=== PATIENT | female | born 1940 | race Caucasian/White ===

== ENCOUNTER → 2021-05-01 15:54 | Outpatient (CLI) | payer MEDICARE, OTHER, SELFPAY ==
[2021-05-01 16:53] LABS: BUN Creatinine Ratio 24.6 (6-22); Blood Urea Nitrogen 35 mg/dL (7-17); Calcium 9.5 mg/dL (8.4-10.2); Carbon Dioxide 31 mmol/L (22-32); Chloride 99 mmol/L (98-107); Estimated Glomerular Filt Rate 35.6 mL/min (>60); Glucose 118 mg/dL (80-110); HEMOLYSIS < 15 (0-50); Potassium 3.9 mmol/L (3.4-5.1); Sodium 139 mmol/L (137-145)
== END ==
PROVIDERS: PCP Internal Medicine; Referring Provider Internal Medicine Cardiovascular Disease; Visit Provider Internal Medicine Cardiovascular Disease
DX: I50.22 Chronic systolic (congestive) heart failure (principal)
CPT/HCPCS: 36415; 80048

== ENCOUNTER → 2021-09-01 13:21 | Outpatient (CLI) | payer MEDICARE, OTHER, SELFPAY ==
--- NOTE | 2021-09-01 | DI.ECHO.S_ITS ---
[facility] +---------+ : : [address] [address] : : : : [id number] : : : : Phone: [phone] Echocardiogram Report + + :Name: RAVEN MONK V Study Date: 09/01/2021 Height: 63 in : :[facility] ReadingLocation: Weight: 140 lb: : Gender: Female BSA: 1.7 m2 : :: 1940 Age: 80 yrs BP: 95/66 mmHg: :Reason For Study: SYSTOLIC HEART FAILURE : :Ordering Physician: VERONA, : :SAMSON Performed By: Yazmin Hatch : :Referring: SAMSON PINEDA : + + Interpretation Summary 1) Mildly increased left ventricular thickness (concentric) with normal size and mildly reduced systolic function (EF 45-50%). 2) Normal right ventricular size and function. 3) The left atrium is severely dilated. 4) There is moderate mitral regurgitation. 5) Compared to the Echo done 11/23/2016, LVEF has decreased slightly from 50-55% to 45-50% and mitral regurgitation has improved from moderate-severe to moderate on this study. Procedure: A two-dimensional transthoracic echocardiogram with color flow and Doppler was performed. The study quality was technically adequate. Comparison is made with the echocardiogram of 11/23/2016. The heart rate ranged between 50-70 bpm during the study. Left Ventricle: The left ventricle is normal in size. Left ventricular wall thickness is mildly increased. The ejection fraction is estimated to be 45- 50%. Septal motion is consistent with conduction abnormality. Right Ventricle: The right ventricle is normal in size and function. Atria: The left atrium is severely dilated. Right atrial size is normal. There is no Doppler evidence for an interatrial shunt. Mitral Valve: The mitral valve is normal in structure but abnormal in function. There is moderate mitral regurgitation. Aortic Valve: The aortic valve is slightly calcified. The aortic valve is trileaflet. The aortic valve opens well. There is no aortic valve stenosis. There is trace aortic regurgitation. Tricuspid Valve: The tricuspid valve is normal in structure and function. There is mild tricuspid regurgitation. Pulmonic Valve: The pulmonic valve is not well seen, but is grossly normal. There is no pulmonic valvular regurgitation. Great Vessels: The aortic root is normal size. The dimensions of the ascending aorta are normal. The IVC is of normal diameter and collapses greater than 50% with a sniff. This suggests a low right atrial pressure of 3 mm Hg. Pericardium/ Pleura There is no pericardial effusion. There is no pleural effusion. MMode/2D Measurements & Calculations LVIDd: 4.5 cm LVOT diam: 2.0 cm LVIDs: 3.5 cm Ao root diam: 2.7 cm FS: 21.9 % asc Aorta Diam: 3.1 cm IVSd: 1.3 cm Ao Arch Diam (Prox Trans): 2.7 cm LVPWd: 0.98 cm LV roblero. diameter/BSA (cm/m^2): 2.7 LV sys. diameter/BSA (cm/m^2): 2.1 LA A2 area: 28.2 cm2 RA long axis: 4.7 cm LA A4 area: 29.1 cm2 RA area: 14.3 cm2 LA length (vol): 6.4 cm RA vol: 37.0 ml LA vol: 109.5 ml RA : 22.2 ml/m2 LA vol index: 65.9 ml/m2 IVC diam: 1.3 cm RVD1 (basal): 3.2 cm RVD2 (mid): 2.7 cm TAPSE: 2.2 cm Doppler Measurements & Calculations Ao V2 max: 174.2 cm/sec LVOT Max Ebenezer: 100.7 cm/sec Ao V2 mean: 125.3 cm/sec LV V1 max P.1 mmHg Ao max P.2 mmHg LV V1 VTI: 28.7 cm Ao mean P.1 mmHg JAXSON(I,D): 1.9 cm2 Ao V2 VTI: 44.3 cm JAXSON(V,D): 1.7 cm2 sev ratio: 0.65 JAXSON indexed to BSA (cm^2/m^2): 1.2 MV E max ebenezer: 104.1 cm/sec PA V2 max: 102.8 cm/sec MV A max ebenezer: 72.7 cm/sec PA V2 mean: 71.3 cm/sec MV E/A: 1.4 PA mean P.3 mmHg Med Peak E' Ebenezer: 5.3 cm/sec PA pr(Accel): 24.2 mmHg E/E' med: 19.7 MV dec time: 0.23 sec MR ERO: 0.14 cm2 MR PISA: 2.5 cm2 SV(LVOT): 85.9 ml MR flow rate: 93.8 cm3/sec MR PISA radius: 0.64 cm Reading Physician:04:02 PM
[2021-09-01 15:12] LABS: Add Manual Diff / Slide Review NO; Basophils Absolute Auto 0 /uL (0-100); Basophils Percent Auto 0.6 % (0-2); Eosinophils Absolute Auto 200 /uL (0-450); Eosinophils Percent Auto 2.3 % (2-4); Hematocrit 35.4 % (36-46); Hemoglobin 12.4 g/dL (12.0-16.0); Lymphocytes Absolute Auto 1900 /uL (1100-4500); Lymphocytes Percent Auto 27.8 % (25-40); Mean Corpuscular HGB Conc 35.1 % (30-36); Mean Corpuscular Volume 85.4 fL (80-100); Monocytes Absolute Auto 500 /uL (0-900); Monocytes Percent Auto 7.5 % (3-14); Neutrophils Absolute Auto 4300 /uL (1500-7000); Neutrophils Percent Auto 61.8 % (50-75); Platelet Count 211 X10^3/uL (150-400); Red Blood Cell Count 4.14 X10^6/uL (4.0-5.2); Red Cell Distribution Width 16.4 % (11.6-14.8)
[2021-09-01 15:14] LABS: BUN Creatinine Ratio 30.7 (6-22); Blood Urea Nitrogen 39 mg/dL (7-17); Calcium 9.3 mg/dL (8.4-10.2); Carbon Dioxide 30 mmol/L (22-32); Chloride 104 mmol/L (98-107); Cholesterol 115 mg/dL (140-199); Estimated Glomerular Filt Rate 43 mL/min (>60); Glucose 112 mg/dL (80-110); HDL Cholesterol 46 mg/dL (40-60); HEMOLYSIS < 15 (0-50); LDL Cholesterol Calculated 38 mg/dL (<100); Potassium 4.4 mmol/L (3.4-5.1); Sodium 141 mmol/L (137-145); Triglycerides 155 mg/dL (35-150)
== END ==
PROVIDERS: PCP Internal Medicine; Referring Provider Internal Medicine Cardiovascular Disease; Visit Provider Internal Medicine Cardiovascular Disease
DX: I25.10 Atherosclerotic heart disease of native coronary artery without angina pectoris (principal); E78.5 Hyperlipidemia, unspecified; I50.22 Chronic systolic (congestive) heart failure; I08.1 Rheumatic disorders of both mitral and tricuspid valves
CPT/HCPCS: 36415; 80048; 80061; 85025; 93306

== ENCOUNTER 2023-01-09 19:23 | Emergency (ER) | payer MEDICARE, OTHER, SELFPAY ==
[2023-01-09] VITALS (19 sets, daily range): BP systolic 83–193; BP diastolic 50–88; PULSE 67–97; RESP 15–28; TEMP 36.8; O2SAT 87–100; BMI 25.8
--- NOTE | 2023-01-09 19:40 | DI.RAD.S_ITS ---
PROCEDURE: XR CHEST 1V INDICATIONS: Shortness of breath TECHNIQUE: One view of the chest was acquired. COMPARISON: [facility], CHEST 1 VIEW, 12/10/2012, 16:18. [facility], CHEST 1 VIEW, 12/04/2011, 15:46. FINDINGS: Surgical changes and devices: None. Lungs and pleura: No consolidation, pleural effusion, or pneumothorax identified. Possible 1 centimeter pulmonary nodule or granuloma or prominent costochondral cartilage left lung base. Few indeterminate irregular nodular opacities right lung base. Mediastinum: Mediastinal contours appear normal. Heart size is normal. Bones and chest wall: No suspicious bony lesions. Overlying soft tissues appear unremarkable. IMPRESSION: 1. No consolidation, pleural effusion, or pneumothorax. 2. Possible pulmonary nodules/granulomata/other nonspecific opacities at both lung bases. CT of the chest could be obtained for further evaluation if clinically indicated, for example on a nonemergent basis. Dictated by: Joel Russell M.D. on 01/09/2023 at 20:36 Approved by: Joel Russell M.D. on 01/09/2023 at 20:39
[2023-01-09 20:13] LABS: Prothrombin Time 11.6 SECONDS (10.1-12.7)
[2023-01-09 20:15] LABS: Add Manual Diff / Slide Review NO; Basophils Absolute Auto 0 /uL (0-100); Basophils Percent Auto 0.2 % (0-2); Eosinophils Absolute Auto 100 /uL (0-450); Eosinophils Percent Auto 2.1 % (2-4); Hematocrit 34.8 % (36-46); Hemoglobin 11.9 g/dL (12.0-16.0); Lymphocytes Absolute Auto 1900 /uL (1100-4500); Lymphocytes Percent Auto 40.1 % (25-40); Mean Corpuscular HGB Conc 34.3 % (30-36); Mean Corpuscular Hemoglobin 28.9 PG (26-34); Mean Corpuscular Volume 84.3 fL (80-100); Monocytes Absolute Auto 400 /uL (0-900); Monocytes Percent Auto 9.4 % (3-14); Neutrophils Absolute Auto 2300 /uL (1500-7000); Neutrophils Percent Auto 48.2 % (50-75); Platelet Count 188 X10^3/uL (150-400); Red Blood Cell Count 4.12 X10^6/uL (4.0-5.2); Red Cell Distribution Width 14.1 % (11.6-14.8); White Blood Cell Count 4.7 X10^3/uL (4.5-11.0)
[2023-01-09 20:20] LABS: Alanine Aminotransferase 25 IU/L (<35); Albumin 3.9 g/dL (3.5-5.0); Albumin Globulin Ratio 1.2 (1.0-2.8); Alkaline Phosphatase 46 U/L (38-126); Aspartate Aminotransferase 27 IU/L (14-36); BUN Creatinine Ratio 17.5 (6-22); Bilirubin Total 0.7 mg/dL (0.2-1.3); Blood Urea Nitrogen 20 mg/dL (7-17); Calcium 9.4 mg/dL (8.4-10.2); Carbon Dioxide 23 mmol/L (22-32); Chloride 104 mmol/L (98-107); Estimated Glomerular Filt Rate 48 mL/min (>60); Globulin 3.2 g/dL (1.7-4.1); Glucose 109 mg/dL (80-110); HEMOLYSIS < 15 (0-50); Lactate (Lactic Acid) 1.4 mmol/L (0.7-2.1); Potassium 4.2 mmol/L (3.4-5.1); Sodium 137 mmol/L (137-145); Total Protein 7.1 g/dL (6.3-8.2)
[2023-01-09 20:31] LABS: NT-proBNP (BNP-Adult 18+) 1090 pg/mL (<450); Troponin I 0.015 ng/mL (0.01-0.034)
[2023-01-09 20:48] LABS: Influenza A - CEPHEID Flu A NEGATIVE (NEGATIVE); Influenza B - CEPHEID Flu B NEGATIVE (NEGATIVE); Respiratory Syncytial Virus Negative (Negative)
[2023-01-09 20:52] LABS: COVID-19 CEPHEID 4-PLEX PCR POSITIVE (Negative)
--- NOTE | 2023-01-09 20:57 | ED_ITS ---
HPI - SOB/Dyspnea General Chief Complaint: Shortness of Breath/Dyspnea Stated Complaint: weak after having covid/ dry cough/ Time Seen by Provider: 01/09/23 20:36 Source: patient Mode of arrival: Ambulatory Limitations: no limitations History of Present Illness HPI Narrative: Patient 82-year-old female history of atrial fibrillation reports that she had COVID about 2-3 weeks ago she has not quite recovered. She continues to feel weak and shaky. She reports that she is been out of her medication for at least that long no once been able to fill them or pick them. She is able to get up and go to the restroom denies any significant shortness of breath or chest pain. She reports that she is able to eat and drink some but just generally feels weak. She has not truly recovered she. She reports that she only had fever when she had COVID does not report fever or pain now. Related Data Home Medications Medication Instructions Recorded Confirmed ASPIRIN (#ASPIR 81) 81 mg PO ##0 12/04/11 Previous Rx's Medication Instructions Recorded cefpodoxime 200 mg tablet 200 mg PO BID #14 tabs 01/10/23 doxycycline hyclate 100 mg capsule 100 mg PO BID #14 caps 01/10/23 Allergies Allergy/AdvReac Type Severity Reaction Status Date / Time Penicillins [PENICILLINS] Allergy Severe Rash Unverified 07/31/17 12:19 povidone-iodine Allergy Severe Bad Unverified 07/31/17 12:19 [From BETADINE] reaction soap [From BETADINE] Allergy Severe Bad Unverified 07/31/17 12:19 reaction venom-honey bee Allergy Severe HIVES, Unverified 07/31/17 12:19 [bee venom (honey bee)] ANAPHYLAXIS adhesive [ADHESIVE] Allergy Mild Dermatitis Unverified 07/31/17 12:19 Review of Systems Review of Systems ROS Unobtainable: All systems reviewed & are unremarkable except as noted in HPI and below Patient History Surgical History Status post cholecystectomy (01/11/11) Status post colonoscopy (09/20/11) Status post laparoscopic cholecystectomy (01/11/11) Social History Smoking Status: Never smoker Smoking Status: Never smoker Substance Use Type: does not use Exam Initial Vital Signs Initial Vital Signs: Vital Signs Temperature 98.3 F 01/09/23 19:27 Pulse Rate 83 01/09/23 19:27 Respiratory Rate 24 01/09/23 19:27 Blood Pressure 120/82 01/09/23 19:27 Pulse Oximetry 99 01/09/23 19:27 Oxygen Delivery Method Room Air 01/09/23 19:27 GENERAL: Alert elderly 82-year-old female and in [no acute] distress. HEENT: Head atraumatic,EOMI, pupils reactive, face symmetric, [moist] mucous membranes CARDIOVASCULAR: Regular rate and rhythm without murmurs, rubs or gallops. RESPIRATORY: Breath sounds equal bilaterally, no wheezes rales or rhonchi. ABDOMEN: Soft, nontender. Normoactive bowel sounds all 4 quadrants. No guarding or rebound. EXTREMITIES: Normal range of motion, no clubbing or edema. Neurovascularly intact NEUROLOGICAL: Alert and oriented x4 SKIN: Warm, dry, no laceration, no petechiae, no rashes or lesions. Course Orders Ordered: Discontinued Medications Sodium Chloride (Normal Saline 0.9%) 1,000 mls @ 1,000 mls/hr IV BOLUS ONE Stop: 01/09/23 23:21 Last Infusion: 01/09/23 22:45 Dose: 0 mls/hr Documented By: Admin: 01/09/23 21:00 Dose: 1,000 mls/hr Documented By: GARY NOREPINEPHRINE BITARTRATE/D5W (Levophed) 4 mg in 250 mls @ 24.834 mls/hr IV TITRATE JERAD; Protocol Last Admin: 01/10/23 00:17 Dose: Not Given Documented By: GARY Sodium Chloride (Normal Saline 0.9%) 1,000 mls @ 1,000 mls/hr IV BOLUS ONE Stop: 01/09/23 23:45 Last Infusion: 01/10/23 00:16 Dose: 0 mls/hr Documented By: Admin: 01/09/23 22:55 Dose: 1,000 mls/hr Documented By: GARY Vital Signs Vital signs: Vital Signs - 8 hr 01/09/23 19:27 01/09/23 20:03 01/09/23 20:30 Temperature 98.3 F Pulse Rate 83 75 Respiratory Rate 24 18 Blood Pressure 120/82 111/67 92/62 Pulse Oximetry 99 99 Oxygen Delivery Method Room Air 01/09/23 20:30 01/09/23 21:00 01/09/23 21:00 Temperature Pulse Rate 70 68 Respiratory Rate 18 15 Blood Pressure 85/60 L Pulse Oximetry 98 98 Oxygen Delivery Method 01/09/23 21:02 01/09/23 21:02 01/09/23 21:30 Temperature Pulse Rate 71 Respiratory Rate 21 Blood Pressure 89/65 L 83/55 L Pulse Oximetry 98 Oxygen Delivery Method 01/09/23 21:30 01/09/23 22:02 01/09/23 22:02 Temperature Pulse Rate 67 75 Respiratory Rate 18 Blood Pressure 88/61 L Pulse Oximetry 99 91 Oxygen Delivery Method 01/09/23 22:21 01/09/23 22:21 01/09/23 22:30 Temperature Pulse Rate 68 69 Respiratory Rate 17 16 Blood Pressure 91/50 L Pulse Oximetry 99 100 Oxygen Delivery Method 01/09/23 22:31 01/09/23 22:31 01/09/23 22:45 Temperature Pulse Rate 72 70 Respiratory Rate 21 18 Blood Pressure 88/52 L Pulse Oximetry 100 100 Oxygen Delivery Method 01/09/23 22:45 01/09/23 23:00 01/09/23 23:00 Temperature Pulse Rate 70 Respiratory Rate 17 Blood Pressure 84/56 L 84/56 L Pulse Oximetry 99 Oxygen Delivery Method 01/09/23 23:30 01/09/23 23:30 01/09/23 23:43 Temperature Pulse Rate 70 Respiratory Rate 16 Blood Pressure 83/55 L 86/51 L Pulse Oximetry 99 Oxygen Delivery Method 01/09/23 23:43 01/09/23 23:47 01/09/23 23:47 Temperature Pulse Rate 74 97 H Respiratory Rate 21 28 H Blood Pressure 187/84 H Pulse Oximetry 98 87 L Oxygen Delivery Method 01/09/23 23:48 01/09/23 23:48 01/09/23 23:50 Temperature Pulse Rate 95 H Respiratory Rate 27 H Blood Pressure 177/77 H 100/51 L Pulse Oximetry 97 Oxygen Delivery Method 01/09/23 23:50 01/09/23 23:53 01/09/23 23:55 Temperature Pulse Rate 85 Respiratory Rate 23 Blood Pressure 193/88 H 107/64 Pulse Oximetry 94 Oxygen Delivery Method 01/10/23 00:43 01/10/23 00:47 01/10/23 00:47 Temperature Pulse Rate 76 Respiratory Rate Blood Pressure 209/84 H Pulse Oximetry 95 100 Oxygen Delivery Method 01/10/23 01:44 01/10/23 01:45 Temperature Pulse Rate 112 H Respiratory Rate 20 Blood Pressure 179/80 H Pulse Oximetry 98 Oxygen Delivery Method Room Air MDM - SOB/Dyspnea Lab Data 01/09/23 19:50 01/09/23 19:50 Labs: Lab Results 01/09/23 01/09/23 01/09/23 Range/Units 19:30 19:50 19:50 WBC 4.7 (4.5-11.0) X10^3/uL RBC 4.12 (4.0-5.2) X10^6/uL Hgb 11.9 L (12.0-16.0) g/dL Hct 34.8 L (36-46) % MCV 84.3 (80-100) fL MCH 28.9 (26-34) PG MCHC 34.3 (30-36) % RDW 14.1 (11.6-14.8) % Plt Count 188 (150-400) X10^3/uL Neut % (Auto) 48.2 L (50-75) % Lymph % (Auto) 40.1 H (25-40) % Izard % (Auto) 9.4 (3-14) % Eos % (Auto) 2.1 (2-4) % Baso % (Auto) 0.2 (0-2) % Neut # (Auto) 2300 (2462-9358) /uL Lymph # (Auto) 1900 (3742-8370) /uL Izard # (Auto) 400 (0-900) /uL Eos # (Auto) 100 (0-450) /uL Baso # (Auto) 0 (0-100) /uL PT 11.6 (10.1-12.7) SECONDS INR 1.0 (0.9-1.3) Sodium (137-145) mmol/L Potassium (3.4-5.1) mmol/L Chloride (98-107) mmol/L Carbon Dioxide (22-32) mmol/L BUN (7-17) mg/dL Creatinine (0.52-1.04) mg/dL Estimated GFR (>60) mL/min BUN/Creatinine Ratio (6-22) Glucose (80-110) mg/dL Lactate (0.7-2.1) mmol/L Calcium (8.4-10.2) mg/dL Total Bilirubin (0.2-1.3) mg/dL AST (14-36) IU/L ALT (<35) IU/L Alkaline Phosphatase (38-126) U/L Troponin I (0.01-0.034) ng/mL NT-Pro-B Natriuret Pep (<450) pg/mL Total Protein (6.3-8.2) g/dL Albumin (3.5-5.0) g/dL Globulin (1.7-4.1) g/dL Albumin/Globulin Ratio (1.0-2.8) SARS-CoV-2 (PCR) Positive H (Negative) Influenza A (RT-PCR) Flu a negative (NEGATIVE) Influenza B (RT-PCR) Flu b negative (NEGATIVE) RSV (PCR) Negative (Negative) 01/09/23 01/09/23 01/09/23 Range/Units 19:50 19:50 22:10 WBC (4.5-11.0) X10^3/uL RBC (4.0-5.2) X10^6/uL Hgb (12.0-16.0) g/dL Hct (36-46) % MCV (80-100) fL MCH (26-34) PG MCHC (30-36) % RDW (11.6-14.8) % Plt Count (150-400) X10^3/uL Neut % (Auto) (50-75) % Lymph % (Auto) (25-40) % Izard % (Auto) (3-14) % Eos % (Auto) (2-4) % Baso % (Auto) (0-2) % Neut # (Auto) (8157-2616) /uL Lymph # (Auto) (3250-4757) /uL Izard # (Auto) (0-900) /uL Eos # (Auto) (0-450) /uL Baso # (Auto) (0-100) /uL PT (10.1-12.7) SECONDS INR (0.9-1.3) Sodium 137 (137-145) mmol/L Potassium 4.2 (3.4-5.1) mmol/L Chloride 104 (98-107) mmol/L Carbon Dioxide 23 (22-32) mmol/L BUN 20 H (7-17) mg/dL Creatinine 1.14 H (0.52-1.04) mg/dL Estimated GFR 48 L (>60) mL/min BUN/Creatinine Ratio 17.5 (6-22) Glucose 109 (80-110) mg/dL Lactate 1.4 1.4 (0.7-2.1) mmol/L Calcium 9.4 (8.4-10.2) mg/dL Total Bilirubin 0.7 (0.2-1.3) mg/dL AST 27 (14-36) IU/L ALT 25 (<35) IU/L Alkaline Phosphatase 46 (38-126) U/L Troponin I 0.015 (0.01-0.034) ng/mL NT-Pro-B Natriuret Pep 1090 H (<450) pg/mL Total Protein 7.1 (6.3-8.2) g/dL Albumin 3.9 (3.5-5.0) g/dL Globulin 3.2 (1.7-4.1) g/dL Albumin/Globulin Ratio 1.2 (1.0-2.8) SARS-CoV-2 (PCR) (Negative) Influenza A (RT-PCR) (NEGATIVE) Influenza B (RT-PCR) (NEGATIVE) RSV (PCR) (Negative) Imaging Data Chest x-ray: Radiologist's Impression: PROCEDURE:? XR CHEST 1V ? INDICATIONS:? Shortness of breath ? TECHNIQUE:? One view of the chest was acquired.? ? COMPARISON:? [facility], CHEST 1 VIEW, 12/10/2012, 16:18.? [facility], CHEST 1 VIEW, 12/04/2011, 15:46. ? FINDINGS:? ? Surgical changes and devices:? None.? ? Lungs and pleura:? No consolidation, pleural effusion, or pneumothorax identified.? Possible 1 centimeter pulmonary nodule or granuloma or prominent costochondral cartilage left lung base.? Few indeterminate irregular nodular opacities right lung base. ? Mediastinum:? Mediastinal contours appear normal.? Heart size is normal.? ? Bones and chest wall:? No suspicious bony lesions.? Overlying soft tissues appear unremarkable.? ? ? IMPRESSION:? 1. No consolidation, pleural effusion, or pneumothorax. 2. Possible pulmonary nodules/granulomata/other nonspecific opacities at both lung bases. ?CT of the chest could be obtained for further evaluation if clinically indicated, for example on a nonemergent basis. ? ? Dictated by: Joel Russell M.D. on 01/09/2023 at 20:36 ? ? CT scan - chest: Radiologist's Impression: PROCEDURE:? CT ANGIO CHEST PE PROTOCOL ? INDICATIONS:? covid hypotensive sob ? TECHNIQUE:? After the administration of intravenous contrast, 2 mm thick sections acquired from the pulmonary apices to the posterior costophrenic angles.? 3-dimensional maximum intensity projection (MIP) coronal and sagittal reformats were then acquired through the thorax.? For radiation dose reduction, the following was used:? automated exposure control, adjustment of mA and/or kV according to patient size.? ? COMPARISON:? [facility], CR, XR CHEST 1V, 01/09/2023, 19:49. ? FINDINGS:? Image quality:? Excellent.? ? Pulmonary arteries:? Pulmonary arteries demonstrate no intraluminal filling defects to suggest central pulmonary embolism.? ? Lower Neck: No lymphadenopathy by size criteria. Thyroid:? Visualized thyroid demonstrates no discrete nodules. Axillae: No lymphadenopathy by size criteria. Chest Wall:? Unremarkable.? Bones: Visualized osseous structures demonstrate no suspicious lesions. ? Lungs and Airways:? There are few small clustered ground-glass nodules posteriorly within the right upper lobe.? Numerous smaller clustered indistinct nodules are also demonstrated posteriorly within the right lower lobe.? Mild dependent atelectasis is also present.? The trachea and central airways are patent. Pleura: No pneumothorax or pleural effusions.? ? Heart: Heart size is normal.? No pericardial effusion. Thoracic Vessels: The thoracic aorta is normal in size.? Mediastinum and Elyse: No lymphadenopathy by size criteria. Esophagus: No wall thickening.? There is a small hiatal hernia. ? Abdomen:? Visualized upper abdominal solid organs appear normal in the early arterial phase of enhancement.? ? IMPRESSION:? ? 1.? No evidence of pulmonary embolism. ? 2. Clustered ground-glass nodules in the posterior right upper lobe as well as smaller clustered indistinct nodules in the right lower lobe posteriorly.? The findings are nonspecific but likely represent an atypical infection given clinical history.? Consider short-term follow-up to demonstrate resolution.? ? Dictated by: Dejan Anderson M.D. on 01/09/2023 at 23:25 ECG Data Interpretation: Sinus rhythm rate 79 CT interval 134 QRS [address] changes Q-wave in lead 3 and V1 V2 and V3 left bundle-branch block unknown if it is new MDM Narrative Medical decision making narrative: Patient 82-year-old female presents today with generalized weakness. He was diagnosed with COVID 1-2 weeks ago. Reports that she no longer is having fever is afebrile here but still feeling weak. Blood work has been reviewed no leukocytosis now RADHA negative troponin BNP is mildly elevated at 1000 but she is not tachypneic or short of breath or even having a cough. Her blood pressure is noted to be quite low for about 2 hours. I called and spoke with her daughter she is a normal lactic acid no evidence of sepsis accept for hypotension but she is very asymptomatic. Both patient and daughter report that her blood pressure has actually been as low as this before in the 80s but they are not really sure why. Who is going to start Levophed and readiness central line however blood pressure was rechecked right arm it was instantly different and elevated. It has been checked multiple times now both left and right standing and sitting consistently lower on the left. Patient reports that her blood pressure is lower on the left than the right. She is no evidence of dissection on her chest CT However chest CT does show possible ground-glass opacities. Multiple calls to the daughter throughout the night her posted. Once blood pressure with recognized as normal and hypotensive called daughter unfortunately taxi calves were not available daughter does not drive at night we were able to get a S ambulance because patient is still positive for COVID. 01/10/23 22:50 1 of 2 positive blood cultures for Gram-positive cocci. Nursing staff to call patient in the morning. Possibly contaminated. Discharge Plan Departure Patient Disposition: Home Clinical Impression: Atypical pneumonia Instructions: DI for Atypical Pneumonia Activity Restrictions/Additional Instructions: *You have been diagnosed with atypical pneumonia *What to do: You do have some pneumonia worth treating. You were still positive for COVID but not sure you have an active COVID infection. Increase fluids as tolerated. Your blood pressure is definitely lower on her left arm than your right arm. If you are having any worsening symptoms you may return to the ER by ambulance at any time *Continue to take medications as directed--> SENT TO [facility] in [place] Cefpodoxime 200 mg twice a day 7 days Doxycycline 100 mg twice daily 7 days *Follow up with your primary care provider in 2-3 days or call [phone] *Return to ER if you should have increasing confusion weakness shortness of breath chest pain [or] any new, worsening or concerning symptoms Prescriptions: New cefpodoxime 200 mg tablet 200 mg PO BID Qty: 14 0RF Rx Instructions: must administer with a meal/food doxycycline hyclate 100 mg capsule 100 mg PO BID Qty: 14 0RF No Action ASPIRIN (#ASPIR 81) 81 mg PO Qty: 0 Referrals: Anju Wayne MD [Primary Care Provider] - Stand Alone Forms: Patient Portal/API
[2023-01-09] MEDS: SODIUM CHLORIDE 0.9% 1,000 ML 1000 ML IV ×2 (21:00→22:55)
--- NOTE | 2023-01-09 21:06 | DI.CT.S_ITS ---
PROCEDURE: CT ANGIO CHEST PE PROTOCOL INDICATIONS: covid hypotensive sob TECHNIQUE: After the administration of intravenous contrast, 2 mm thick sections acquired from the pulmonary apices to the posterior costophrenic angles. 3-dimensional maximum intensity projection (MIP) coronal and sagittal reformats were then acquired through the thorax. For radiation dose reduction, the following was used: automated exposure control, adjustment of mA and/or kV according to patient size. COMPARISON: [facility], CR, XR CHEST 1V, 01/09/2023, 19:49. FINDINGS: Image quality: Excellent. Pulmonary arteries: Pulmonary arteries demonstrate no intraluminal filling defects to suggest central pulmonary embolism. Lower Neck: No lymphadenopathy by size criteria. Thyroid: Visualized thyroid demonstrates no discrete nodules. Axillae: No lymphadenopathy by size criteria. Chest Wall: Unremarkable. Bones: Visualized osseous structures demonstrate no suspicious lesions. Lungs and Airways: There are few small clustered ground-glass nodules posteriorly within the right upper lobe. Numerous smaller clustered indistinct nodules are also demonstrated posteriorly within the right lower lobe. Mild dependent atelectasis is also present. The trachea and central airways are patent. Pleura: No pneumothorax or pleural effusions. Heart: Heart size is normal. No pericardial effusion. Thoracic Vessels: The thoracic aorta is normal in size. Mediastinum and Elyse: No lymphadenopathy by size criteria. Esophagus: No wall thickening. There is a small hiatal hernia. Abdomen: Visualized upper abdominal solid organs appear normal in the early arterial phase of enhancement. IMPRESSION: 1. No evidence of pulmonary embolism. 2. Clustered ground-glass nodules in the posterior right upper lobe as well as smaller clustered indistinct nodules in the right lower lobe posteriorly. The findings are nonspecific but likely represent an atypical infection given clinical history. Consider short-term follow-up to demonstrate resolution. Dictated by: Dejan Anderson M.D. on 01/09/2023 at 23:25 Approved by: Dejan Anderson M.D. on 01/09/2023 at 23:36
[2023-01-09 22:54] LABS: Lactate (Lactic Acid) 1.4 mmol/L (0.7-2.1)
--- NOTE | 2023-01-10 00:18 | PC.NURSE ---
Pt has 70-80point difference in SBP from right to left arm.
[2023-01-10 00:43] VITALS: O2SAT 95
[2023-01-10 00:47] VITALS: BP 209/84; PULSE 76; O2SAT 100
[2023-01-10 01:44] VITALS: BP 179/80; PULSE 112; O2SAT 98
[2023-01-10 01:45] VITALS: RESP 20
[2023-01-10 03:24] VITALS: BP 164/76
== END 2023-01-10 03:28 | disposition home or self-care (01) ==
PROVIDERS: Emergency Provider Emergency Medicine; PCP Internal Medicine
DX: J18.9 Pneumonia, unspecified organism (principal); U07.1 COVID-19
CPT/HCPCS: 0241U; 36415; 71045; 71275; 80053; 83605; 83880; 84484; 85025; 85610; 87040; 93005; 96360; 96361; 99284; Q9967

== ENCOUNTER → 2023-08-12 12:27 | Outpatient (CLI) | payer MEDICARE, OTHER, SELFPAY ==
--- NOTE | 2023-08-12 | DI.ECHO.S_ITS ---
[place] +---------+ [facility] : : [address] : : [place] : : [id number] : : Phone: [phone] Echocardiogram Report + + :Name: RAVEN MONK V Study Date: 08/12/2023 Height: 63 in : :[facility] ReadingLocation: Weight: 140 lb : : Gender: Female BSA: 1.7 m2 : :: 1940 Age: 82 yrs BP: 191/86 mmHg: :Reason For Study: CHRONIC SYSTOLIC HEART FAILURE : :Ordering Physician: VERONA, : :SAMSON Performed By: Dileep Garcia : :Referring: SAMSON PINEDA : + + Interpretation Summary 1) Mildly increased left ventricular thickness (concentric) with normal size and mildly reduced systolic function (EF about 45%). 2) Normal right ventricular size and function. 3) The left atrium is moderately dilated. 4) There is mild to moderate mitral regurgitation. 5) Compared to the Echo done 09/01/2021, mitral regurgitation has decreased from moderate to mild-moderate on this study. Procedure: A two-dimensional transthoracic echocardiogram with color flow and Doppler was performed. The study quality was technically adequate. Comparison is made with the echocardiogram of 09/01/2021. POOR EKG SIGNAL. Left Ventricle: The left ventricle is normal in size. There is mild concentric left ventricular hypertrophy. Left ventricular ejection fraction is estimated to be 45 +/- 5%. There is mild global hypokinesis of the left ventricle. Right Ventricle: The right ventricle is normal in size and function. Atria: The left atrium is moderately dilated. Right atrial size is normal. The interatrial septum grossly appears intact with no obvious evidence for an atrial septal defect. Mitral Valve: The mitral valve is normal in structure and function. There is no mitral valve stenosis. There is mild to moderate mitral regurgitation. Aortic Valve: The aortic valve is not well visualized. There is no aortic valve stenosis. No aortic regurgitation is present. Tricuspid Valve: The tricuspid valve is normal in structure and function. There is no tricuspid stenosis. There is mild tricuspid regurgitation. The right ventricular systolic pressure is estimated to be at least 28 mmHg based on an estimated right atrial pressure of 3 mm Hg. Pulmonic Valve: The pulmonic valve is not well visualized. There is no pulmonic valvular stenosis. There is no pulmonic valvular regurgitation. Great Vessels: The aortic root is normal size. The dimensions of the ascending aorta are normal. The IVC is of normal diameter and collapses greater than 50% with a sniff. This suggests a low right atrial pressure of 3 mm Hg. Pericardium/ Pleura There is no pericardial effusion. There is no pleural effusion. MMode/2D Measurements & Calculations LVIDd: 4.5 cm LVOT diam: 1.9 cm LVIDs: 3.5 cm Ao root diam: 2.7 cm FS: 22.7 % asc Aorta Diam: 2.8 cm IVSd: 1.1 cm LVPWd: 1.1 cm LV roblero. diameter/BSA (cm/m^2): 2.7 LV sys. diameter/BSA (cm/m^2): 2.1 LA A2 area: 19.5 cm2 RA long axis: 4.0 cm LA A4 area: 17.4 cm2 RA area: 9.8 cm2 LA length (vol): 4.9 cm RA vol: 20.3 ml LA vol: 58.9 ml RA : 12.2 ml/m2 LA vol index: 35.4 ml/m2 IVC diam: 1.5 cm RVD1 (basal): 2.9 cm RVD2 (mid): 2.7 cm TAPSE: 2.2 cm Doppler Measurements & Calculations Ao V2 max: 160.7 cm/sec LVOT Max Ebenezer: 107.6 cm/sec Ao V2 mean: 109.0 cm/sec LV V1 max P.6 mmHg Ao max P.3 mmHg LV V1 VTI: 30.3 cm Ao mean P.4 mmHg JAXSON(I,D): 2.1 cm2 Ao V2 VTI: 39.8 cm JAXSON(V,D): 1.9 cm2 sev ratio: 0.76 JAXSON indexed to BSA (cm^2/m^2): 1.3 MV E max ebenezer: 62.3 cm/sec TR max ebenezer: 252.4 cm/sec MV A max ebenezer: 83.5 cm/sec TR max P.5 mmHg MV E/A: 0.75 PA V2 max: 92.0 cm/sec Med Peak E' Ebenezer: 4.5 cm/sec PA V2 mean: 68.3 cm/sec E/E' med: 13.8 PA mean P.1 mmHg Lat Peak E' Ebenezer: 6.8 cm/sec PA pr(Accel): 39.6 mmHg E/E' lat: 9.1 E/e' average: 11.4 MV dec time: 0.32 sec SVLVOT): 85.4 ml Reading Physician:12:36 PM
== END ==
PROVIDERS: PCP Internal Medicine; Referring Provider Internal Medicine Cardiovascular Disease; Visit Provider Internal Medicine Cardiovascular Disease
DX: I08.1 Rheumatic disorders of both mitral and tricuspid valves (principal); I50.22 Chronic systolic (congestive) heart failure
CPT/HCPCS: 36415; 80048; 93306

== ENCOUNTER → 2023-08-12 12:29 | Outpatient (CLI) | payer MEDICARE, OTHER, SELFPAY ==
[2023-08-12 14:27] LABS: BUN Creatinine Ratio 21.4 (6-22); Blood Urea Nitrogen 28 mg/dL (7-17); Calcium 9.7 mg/dL (8.4-10.2); Carbon Dioxide 25 mmol/L (22-32); Chloride 103 mmol/L (98-107); Estimated Glomerular Filt Rate 41 mL/min (>60); Glucose 112 mg/dL (80-110); HEMOLYSIS < 15 (0-50); Potassium 3.9 mmol/L (3.4-5.1); Sodium 138 mmol/L (137-145)
== END ==
PROVIDERS: PCP Internal Medicine; Referring Provider Internal Medicine Cardiovascular Disease; Visit Provider Internal Medicine Cardiovascular Disease
DX: I50.22 Chronic systolic (congestive) heart failure (principal)
CPT/HCPCS: 36415; 80048